=== PATIENT | male | born 1975 | race Caucasian/White ===

== ENCOUNTER 2016-10-17 09:38 | Observation (INO) | payer OTHER ==
[~2016-10-17] VITALS: Ht 185.4 cm; Wt 94.4 kg
[2016-10-17] MEDS ORDERED: LORazepam 1MG TABLET ONE (10:57)
[2016-10-17 10:58] LABS: HEMATOCRIT 49.6 % (39.2-51.8); HEMOGLOBIN 16.9 g/dL (13.7-18.0); WHITE BLOOD COUNT 9.7 x10^3/uL (3.4-10)
[2016-10-17] MEDS ORDERED: LORazepam 1MG TABLET PO ONE (11:00)
[2016-10-17 11:09] LABS: ASPARTATE AMINO TRANSFERASE 38 U/L (15-37); BLOOD UREA NITROGEN 11 mg/dL (7-18)
[2016-10-17 11:15] LABS: ACETAMINOPHEN < 2 mcg/mL (10-30)
[2016-10-17 12:04] LABS: DAU SCREEN DISCLAIMER
[2016-10-17] MEDS ORDERED: ACETAMINOPHEN 500 MG TABLET ONE (12:34)
[2016-10-17] MEDS ORDERED: ACETAMINOPHEN 325 MG TABLET PO ONE (13:00)
[2016-10-17] MEDS ORDERED: LISI40TA PO (13:08)
[2016-10-17] MEDS ORDERED: HYDR12.58 PO (13:08)
[2016-10-17] MEDS ORDERED: HIV MEDS (13:08)
[2016-10-17] MEDS ORDERED: LORazepam 1MG TABLET PO PRN (16:00)
[2016-10-17] MEDS ORDERED: LORazepam 2 MG/ML, 1ML IM PRN (16:00)
[2016-10-17] MEDS ORDERED: DOCUSATE 100 MG CAPSULE PO PRN (16:00)
[2016-10-17] MEDS: LISINOPRIL 20 MG TABLET PO SCH (18:12)
[2016-10-17 19:24] VITALS: BP 148/89
[2016-10-18 08:15] VITALS: BP 135/83
[2016-10-18] MEDS: HYDROCHLOROTHIAZIDE 12.5 MG CAPSULE PO SCH (08:52)
[2016-10-18] MEDS: LISINOPRIL 20 MG TABLET PO SCH (08:53)
[2016-10-18 19:32] VITALS: BP 147/83
[2016-10-19 08:59] VITALS: BP 135/93
[2016-10-19] MEDS: LISINOPRIL 20 MG TABLET PO SCH (09:08)
[2016-10-19] MEDS: HYDROCHLOROTHIAZIDE 12.5 MG CAPSULE PO SCH (09:08)
[2016-10-21 00:06] LABS: ABSOLUTE CD 4 HELPER 1377 /uL (359-1519); HEMATOCRIT 50.3 % (37.5-51.0); HEMOGLOBIN 16.7 g/dL (12.6-17.7); IMMATURE GRANULOCYTES 1 % (.); MCH 31.1 pg (26.6-33.0); MCHC 33.2 g/dL (31.5-35.7); MCV 94 fL (79-97); MONOCYTES 8 % (.); NEUTROPHILS 51 % (.); NEUTROPHILS (ABSOLUTE) 3.9 x10E3/uL (1.4-7.0); PLATELETS 213 x10E3/uL (150-379); RBC 5.37 x10E6/uL (4.14-5.80); RDW 14.3 % (12.3-15.4); WBC 7.6 x10E3/uL (3.4-10.8)
== END 2016-10-19 14:21 ==
LOC: ED 11:12 → EDIP 12:38 → 3E 16:11
PROVIDERS: ADMIT Internal Medicine; ATTEND Internal Medicine
DX: F23 Brief psychotic disorder (principal); R44.3 Hallucinations, unspecified; R45.851 Suicidal ideations; I10 Essential (primary) hypertension; F31.9 Bipolar disorder, unspecified; F15.10 Other stimulant abuse, uncomplicated; F10.10 Alcohol abuse, uncomplicated; B20 Human immunodeficiency virus [HIV] disease; Z91.19 Patient's noncompliance with other medical treatment and regimen; Z91.14 Patient's other noncompliance with medication regimen
CPT/HCPCS: 36415; 80053; 80307; 80329; 81003; 84439; 84443; 85025; 86361; 87536; 93005; 99285; G0378; G0480